=== PATIENT | female | born 1940 | race Hispanic/Latino ===

== ENCOUNTER 2019-10-02 06:44 | Outpatient (CLI) | payer MEDICARE, OTHER ==
[2019-10-02 18:03] LABS: #Basophils 0.1 thou/uL (0.0-0.2); #Eosinphils 0.1 thou/uL (0.0-0.7); #Lymphocytes 1.8 thou/uL (1.20-3.40); #Monocytes 0.4 thou/uL (0.11-0.59); #Neutrophils 4.6 thou/uL (1.40-6.50); %Eosinophils 1.8 % (0.0-10.0); %Lymphocytes 26.1 % (21.0-51.0); %Monocytes 5.9 % (0.0-10.0); %Neutrophils 65.2 % (42.0-75.0); Hemoglobin 14.4 g/dL (12.0-16.0); Mean Corpuscular HGB CONC 32.8 g/dL (32.0-36.0); Mean Corpuscular Hemoglobin 29.6 pg (27.0-31.0); Mean Corpuscular Volume 90.3 fL (78.0-98.0); Mean Platelet Volume 8.3 fL (7.4-10.4); Platelet Count 261 thou/uL (130-400); RBC Distribution Width 13.2 % (11.5-14.5); Red Blood Cell (RBC) Count 4.86 mill/uL (4.20-5.40)
[2019-10-02 18:08] LABS: Anion Gap 14 mmol/L (10-20); BUN (Urea Nitrogen) 15 mg/dL (9.8-20.1); Calc. Creatinine Clearance 0 mL/min (70-130); Calcium 9.3 mg/dL (7.8-10.44); Carbon Dioxide 22 mmol/L (23-31); Chloride 108 mmol/L (98-107); Estimated GFR-MDRD 82; Glucose 120 mg/dL (83-110); Potassium 3.8 mmol/L (3.5-5.1); Sodium 140 mmol/L (136-145)
[2019-10-03 13:14] LABS: SARS-CoV-2 MS2 Positive; SARS-CoV-2 N Gene Negative; SARS-CoV-2 S Gene Negative; SARS-CoV-2 orf1ab Negative
== END 2019-10-02 06:45 | disposition home or self-care (01) ==
LOC: LABBT 06:44
PROVIDERS: ATTEND Specialist
DX: Z01.812 Encounter for preprocedural laboratory examination (principal); Z11.59 Encounter for screening for other viral diseases; C50.412 Malignant neoplasm of upper-outer quadrant of left female breast; Z17.0 Estrogen receptor positive status [ER+]
CPT/HCPCS: 80048; 85025; U0003; 87635

== ENCOUNTER 2019-10-06 07:28 | Day surgery (SDC) | payer MEDICARE ==
[2019-10-01 17:17] VITALS: BMI 31.1
[2019-10-06] MEDS ORDERED: Acetaminophen 500 MG TAB ONE (09:10)
[2019-10-06] MEDS ORDERED: Ketorolac Tromethamine 30 MG/ML VIAL ONE (09:10)
--- NOTE | 2019-10-06 09:27 | NM ---
Lymphoscintigraphy left breast HISTORY: Malignant neoplasm upper outer left female breast. FINDINGS: Total volume of 1 cc liquid containing 0.386 mCi technetium 99m filtered sulfur colloid int o the skin around the periareolar aspect of the left breast was injected. Immediate images show a focal area of increased radiotracer activity deep within the slightly lateral aspect of the left breast. There are 2 additional slightly less intense foci into the superior and superior-medial aspect of the breast. Patient tolerated the procedure well and was transferred to day surgery in good condition. IMPRESSION : Technically successful lymphoscintigraphy left breast, with the dominant, sentinel lymph node deep wi thin the slightly lateral aspect of the left breast.
[2019-10-06] MEDS ORDERED: Bupivacaine 0.25% HCL 30 ML VIAL ONE (11:46)
[2019-10-06] MEDS ORDERED: Lidocaine 1% w/Epinephrine 1:100K 20 ML VIAL ONE (11:46)
[2019-10-06] MEDS ORDERED: Isosulfan Blue 50 MG/5 ML VIAL ONE (11:46)
[2019-10-06] MEDS ORDERED: Fentanyl 100 MCG/2 ML VIAL ONE ×2 (11:49→14:26)
[2019-10-06] MEDS ORDERED: HYDROcodone/Acetaminophen 5/325 mg Tablet ONE (14:39)
[2019-10-06] MEDS ORDERED: PROPOFOL 200 MG/20 ML VIAL ONE (15:28)
[2019-10-06] MEDS ORDERED: Lidocaine 1% PF 5 ML VIAL ONE (15:28)
[2019-10-06] MEDS ORDERED: EPHEDRINE 25 MG/5 ML SYRINGE ONE (15:28)
[2019-10-06] MEDS ORDERED: Dexamethasone 20 MG/5 ML VIAL ONE (15:28)
--- NOTE | 2019-10-06 16:52 | OP ---
DATE OF PROCEDURE: 10/06/2019 PREOPERATIVE DIAGNOSIS: Left breast cancer. POSTOPERATIVE DIAGNOSIS: Left breast cancer. PROCEDURES PERFORMED: Left breast ultrasound guided-needle localization, needle localized lumpectomy, left axillary sentinel lymph node biopsy. MECHANICAL ARTIST: Antione Ramesh, medical student. ANESTHESIA: General with laryngeal mask airway per Adelia Muller CRNA. INDICATIONS: The patient is an 79-year-old female. She had a palpable mass in the upper outer left breast and was taken to the operating room at this time for definitive excision after biopsy showed invasive ductal carcinoma. DESCRIPTION OF OPERATION: Informed consent was obtained. Preoperative lymphoscintigraphy was performed documenting sentinel lymph nodes within the left axilla. She was taken to the operating room, where general anesthesia obtained with the patient in supine position. Left breast and axilla were prepped with ChloraPrep and draped in sterile fashion. 3 mL of Lymphazurin was infiltrated in the left breast in the subdermal periareolar tissue and massaged for 5 minutes. Attention was turned first to the axilla. Local anesthetic was infiltrated and a transverse axillary incision was created and dissection was carried through skin and subcutaneous tissue. Within the axilla, the Neoprobe was utilized to identify areas of maximum radio-intensity. In so doing, I was able to identify 3 separate radioactive lymph nodes, two of which had strong blue staining as well. These were each dissected circumferentially and investing lymphatics were divided between clamps and 3-0 silk tie. There was no further area of significant radioactivity. The wound was meticulously checked for hemostasis and closed in layers with 3-0 and 4-0 Monocryl. Additional local anesthetic was infiltrated during closure. Attention was turned to the left breast. The location of the left breast was checked with ultrasound and marked on the skin in a grid like fashion. A marking needle was then passed through the cancer using ultrasound guidance in a lateral to medial fashion. An elliptical incision was created. Dissection was carried through skin and subcutaneous tissue. Flaps were gently raised superiorly and inferiorly. The lesion was fairly close to the skin. I then dissected a wide core of tissue around the localizing wire. The specimen was removed intact and inspected with ultrasound and margins appeared to be intact. Orienting sutures were placed and the specimen was passed off the field to mammography, which documented the biopsy clip within the specimen. It was then submitted to Pathology. Meticulous hemostasis was obtained within the wound. It was closed in layers with 3-0 and 4-0 Monocryl. Additional local anesthetic was infiltrated during closure. Dermabond was placed externally on both incisions. There were no complications. The patient tolerated the procedure well and was taken to recovery room in stable condition. Job ID: [id number]
== END 2019-10-06 15:38 | disposition home or self-care (01) ==
LOC: SDC 07:28
PROVIDERS: ATTEND Specialist
PROC: 0HBU0ZZ Excision of Left Breast, Open Approach (ICD-10-PCS; principal; 2019-10-06)
PROC: 07B60ZX Excision of Left Axillary Lymphatic, Open Approach, Diagnostic (ICD-10-PCS; 2019-10-06)
DX: C50.412 Malignant neoplasm of upper-outer quadrant of left female breast (principal); C77.3 Secondary and unspecified malignant neoplasm of axilla and upper limb lymph nodes; Z17.0 Estrogen receptor positive status [ER+]
CPT/HCPCS: 19301; 38525; 38900; 76098; 78195; A9541; Q9968; 88307; 88313; 88341; 88342; 88360; J0690; J1100; J1885; J2001; J2704; J3010; S0020

== ENCOUNTER 2019-10-19 05:06 | Outpatient (CLI) | payer MEDICARE, OTHER ==
[2019-10-19 14:27] LABS: #Eosinphils 0.1 thou/uL (0.0-0.7); #Lymphocytes 1.5 thou/uL (1.20-3.40); #Monocytes 0.5 thou/uL (0.11-0.59); #Neutrophils 8.4 thou/uL (1.40-6.50); %Basophils 0.3 % (0.0-1.0); %Eosinophils 1.1 % (0.0-10.0); %Lymphocytes 13.9 % (21.0-51.0); %Monocytes 5.1 % (0.0-10.0); %Neutrophils 79.7 % (42.0-75.0); Hemoglobin 14.8 g/dL (12.0-16.0); Mean Corpuscular HGB CONC 32.5 g/dL (32.0-36.0); Mean Corpuscular Hemoglobin 29.9 pg (27.0-31.0); Mean Platelet Volume 8.1 fL (7.4-10.4); Platelet Count 260 thou/uL (130-400); RBC Distribution Width 13.1 % (11.5-14.5); Red Blood Cell (RBC) Count 4.93 mill/uL (4.20-5.40); White Blood Cell (WBC) Count 10.6 thou/uL (4.8-10.8)
[2019-10-19 15:42] LABS: Anion Gap 13 mmol/L (10-20); BUN (Urea Nitrogen) 11 mg/dL (9.8-20.1); Calc. Creatinine Clearance 0 mL/min (70-130); Calcium 9.8 mg/dL (7.8-10.44); Carbon Dioxide 24 mmol/L (23-31); Chloride 106 mmol/L (98-107); Estimated GFR-MDRD 83; Glucose 99 mg/dL (83-110); Potassium 4.3 mmol/L (3.5-5.1); Sodium 139 mmol/L (136-145)
[2019-10-20 14:01] LABS: SARS-CoV-2 MS2 Positive; SARS-CoV-2 N Gene Negative; SARS-CoV-2 S Gene Negative; SARS-CoV-2 orf1ab Negative
== END 2019-10-19 05:07 | disposition home or self-care (01) ==
LOC: LABBT 05:06
PROVIDERS: ATTEND Specialist
DX: Z01.812 Encounter for preprocedural laboratory examination (principal); Z11.59 Encounter for screening for other viral diseases; C50.919 Malignant neoplasm of unspecified site of unspecified female breast
CPT/HCPCS: 80048; 85025; U0003; 87635

== ENCOUNTER 2019-10-29 06:30 | Outpatient (CLI) | payer MEDICARE, OTHER ==
[2019-10-29 11:54] LABS: #Eosinphils 0.1 thou/uL (0.0-0.7); #Lymphocytes 1.2 thou/uL (1.20-3.40); #Monocytes 0.3 thou/uL (0.11-0.59); #Neutrophils 3.7 thou/uL (1.40-6.50); %Basophils 0.8 % (0.0-1.0); %Eosinophils 1.4 % (0.0-10.0); %Lymphocytes 22.3 % (21.0-51.0); %Monocytes 5.7 % (0.0-10.0); %Neutrophils 69.9 % (42.0-75.0); Hemoglobin 14.7 g/dL (12.0-16.0); Mean Corpuscular HGB CONC 32.7 g/dL (32.0-36.0); Mean Corpuscular Hemoglobin 29.8 pg (27.0-31.0); Mean Corpuscular Volume 91.2 fL (78.0-98.0); Mean Platelet Volume 8.9 fL (7.4-10.4); Platelet Count 240 thou/uL (130-400); RBC Distribution Width 12.9 % (11.5-14.5); Red Blood Cell (RBC) Count 4.94 mill/uL (4.20-5.40); White Blood Cell (WBC) Count 5.3 thou/uL (4.8-10.8)
[2019-10-29 12:06] LABS: Anion Gap 14 mmol/L (10-20); BUN (Urea Nitrogen) 10 mg/dL (9.8-20.1); Calc. Creatinine Clearance 0 mL/min (70-130); Calcium 9.8 mg/dL (7.8-10.44); Carbon Dioxide 23 mmol/L (23-31); Chloride 107 mmol/L (98-107); Estimated GFR-MDRD 86; Glucose 98 mg/dL (83-110); Potassium 4.1 mmol/L (3.5-5.1); Sodium 140 mmol/L (136-145)
[2019-10-30 11:43] LABS: SARS-CoV-2 MS2 Positive; SARS-CoV-2 N Gene Negative; SARS-CoV-2 S Gene Negative; SARS-CoV-2 orf1ab Negative
== END 2019-10-29 06:31 | disposition home or self-care (01) ==
LOC: LABBT 06:30
PROVIDERS: ATTEND Specialist
DX: Z01.812 Encounter for preprocedural laboratory examination (principal); Z11.59 Encounter for screening for other viral diseases; C50.919 Malignant neoplasm of unspecified site of unspecified female breast
CPT/HCPCS: 80048; 85025; U0003; 87635

== ENCOUNTER 2019-11-03 06:53 | Day surgery (SDC) | payer MEDICARE ==
[2019-10-16 09:22] VITALS: BMI 33.1
[2019-11-03] MEDS ORDERED: Ketorolac Tromethamine 30 MG/ML VIAL ONE (08:09)
[2019-11-03] MEDS ORDERED: Acetaminophen 500 MG TAB ONE (08:09)
[2019-11-03] MEDS ORDERED: Lidocaine 1% w/Epinephrine 1:100K 20 ML VIAL ONE ×2 (08:43→09:18)
[2019-11-03] MEDS ORDERED: Bupivacaine 0.25% HCL 30 ML VIAL ONE (08:43)
[2019-11-03] MEDS ORDERED: Fentanyl 100 MCG/2 ML VIAL ONE (08:53)
[2019-11-03] MEDS ORDERED: Bupivacaine PF 0.5% 30 ML VIAL ONE (09:18)
[2019-11-03] MEDS ORDERED: Ondansetron PF 4 MG/2 ML Vial ONE (10:59)
[2019-11-03] MEDS ORDERED: EPHEDRINE 25 MG/5 ML SYRINGE ONE (10:59)
[2019-11-03] MEDS ORDERED: PROPOFOL 200 MG/20 ML VIAL ONE (10:59)
[2019-11-03] MEDS ORDERED: Dexamethasone 20 MG/5 ML VIAL ONE (10:59)
[2019-11-03] MEDS ORDERED: Lidocaine 1% PF 5 ML VIAL ONE (10:59)
--- NOTE | 2019-11-04 00:59 | OP ---
DATE OF PROCEDURE: 11/03/2019 PREOPERATIVE DIAGNOSIS: Invasive lobular carcinoma of the left breast, status post prior lumpectomy with a positive superior margin. POSTOPERATIVE DIAGNOSIS: Invasive lobular carcinoma of the left breast, status post prior lumpectomy with a positive superior margin. OPERATION PERFORMED: Re-excision of the superior margin of her left breast lumpectomy. ANESTHESIA: General endotracheal. INDICATIONS: The patient is an 79-year-old female. She is status post left breast lumpectomy. She was noted to have satellite nodules within the specimen and one of those satellite nodules involve the superior margin. For this reason, she is returned to the operating room for re-excision of the superior margin of her lumpectomy. DESCRIPTION OF OPERATION: Informed consent was obtained. The patient was taken to the operating room where general anesthesia was obtained with the patient in supine position. Left breast was prepped with ChloraPrep and draped in sterile fashion. Local anesthetic was infiltrated using a mixture of 0.25% Marcaine and 1% lidocaine with epinephrine. The prior lumpectomy incision was reopened. Dissection was carried through the breast tissue down into the lumpectomy cavity. The margins of the cavity were easily identified. A new superior margin was obtained between 5 and 8 mm thickness involving the entire superior aspect and extending over onto the medial, lateral, and posterior aspects. The specimen was removed intact. It was tagged with sutures for orientation and passed off the field for Pathology. Meticulous hemostasis was obtained within the wound using electrocautery. The wound was closed in layers with 3-0 and 4-0 Monocryl. Additional local anesthetic was instilled in the wound during closure. Dermabond was placed externally. There were no complications. The patient tolerated the procedure well and was taken to recovery room in stable condition. Job ID: [id number]
== END 2019-11-03 11:20 | disposition home or self-care (01) ==
LOC: SDC 06:53
PROVIDERS: ATTEND Specialist
PROC: 0HBU0ZZ Excision of Left Breast, Open Approach (ICD-10-PCS; principal; 2019-11-03)
DX: C50.412 Malignant neoplasm of upper-outer quadrant of left female breast (principal); N60.12 Diffuse cystic mastopathy of left breast; R92.0 Mammographic microcalcification found on diagnostic imaging of breast; Z17.0 Estrogen receptor positive status [ER+]
CPT/HCPCS: 88307; J0690; J1100; J1885; J2405; J2704; J3010; S0020

== ENCOUNTER 2021-08-07 08:07 | Inpatient (IN) | payer MEDICARE ==
[2021-08-07 08:37] LABS: #Lymphocytes 0.3 thou/uL (1.20-3.40); #Neutrophils 2.6 thou/uL (1.40-6.50); %Eosinophils 0.2 % (0.0-10.0); %Lymphocytes 10.2 % (21.0-51.0); %Monocytes 0.1 % (0.0-10.0); %Neutrophils 89.5 % (42.0-75.0); Mean Corpuscular HGB CONC 32.7 g/dL (32.0-36.0); Mean Corpuscular Hemoglobin 30.6 pg (27.0-31.0); Mean Corpuscular Volume 93.4 fL (78.0-98.0); Platelet Count 226 thou/uL (130-400); RBC Distribution Width 12.8 % (11.5-14.5); Red Blood Cell (RBC) Count 4.92 mill/uL (4.20-5.40); White Blood Cell (WBC) Count 2.9 thou/uL (4.8-10.8)
[2021-08-07] MEDS ORDERED: Aspirin Chewable 81 MG TAB ONE (08:49)
[2021-08-07 08:51] LABS: INR-International Normal Ratio 1.1; Prothrombin Time 13.8 sec (12.0-14.7)
[2021-08-07 08:52] LABS: PTT 35.9 sec (22.9-36.1)
[2021-08-07 08:57] LABS: ALT (SGPT) 8 U/L (8-55); AST (SGOT) 21 U/L (5-34); Albumin 3.6 g/dL (3.4-4.8); Alkaline Phosphatase 88 U/L (40-110); Anion Gap 17 mmol/L (10-20); BUN (Urea Nitrogen) 16 mg/dL (9.8-20.1); Bilirubin, Total 0.4 mg/dL (0.2-1.2); Calc. Creatinine Clearance 0 mL/min (70-130); Calcium 9.2 mg/dL (7.8-10.44); Carbon Dioxide 20 mmol/L (23-31); Chloride 106 mmol/L (98-107); Globulin 2.8 g/dL (2.4-3.5); Glucose 162 mg/dL (83-110); Potassium 3.7 mmol/L (3.5-5.1); Protein, Total 6.4 g/dL (5.8-8.1); Sodium 139 mmol/L (136-145)
[2021-08-07] MEDS ORDERED: Iopamidol-370 76% 500 ML 1 ML ONE (09:21)
[2021-08-07] MEDS ORDERED: Senokot S 8.6-50 MG TAB PO PRN (10:33)
[2021-08-07] MEDS ORDERED: Calcium Carbonate 500 MG ChewTAB PO PRN (10:33)
[2021-08-07] MEDS ORDERED: Nitroglycerin 0.4 MG TAB (25 Tab Bottle) SL PRN (10:57)
[2021-08-07 11:14] LABS: Magnesium 1.5 mg/dL (1.6-2.6)
[2021-08-07 11:16] LABS: Hemoglobin A1c 5.4 % (4.0-6.0)
[2021-08-07 11:51] LABS: Troponin I Less than 0.010 ng/mL (< 0.028)
[2021-08-07] MEDS ORDERED: Magnesium Sulfate In Water 4 GM in Premix Bag 1 BAG IVPB SCH (12:00)
[2021-08-07] MEDS ORDERED: Electrolyte Replacement Protocol 1 EACH FS PRN (13:45)
[2021-08-07] MEDS: Sodium Chloride 0.9% 1,000 ML IV SCH (14:57)
[2021-08-07] MEDS ORDERED: traMADol HCl 50 MG TAB PO SCH (15:00)
[2021-08-07 15:03] LABS: Troponin I Less than 0.010 ng/mL (< 0.028)
[2021-08-07 16:16] LABS: Bacteria/HPF None Seen HPF (None Seen); Bilirubin Negative (Negative); Blood, Urine Negative (Negative); Clarity Clear (Clear); Glucose, Urine (Dipstick) Normal (Negative); Ketone, Urine Negative (Negative); Leukocyte Negative Leu/uL (Negative); Nitrite Negative (Negative); Protein, Urine (Dipstick) Negative (Neg-Trace); RBC/HPF 0-3 HPF (0-3); Specific Gravity, Urine 1.028 (1.002-1.036); Squamous Epithelial 0-3 HPF (0-3); Urobilinogen Normal mg/dL (Less than 2); WBC/HPF 0-3 HPF (0-3)
[2021-08-07 16:23] LABS: Urine Culture Reflex No No
[2021-08-07] MEDS: Enoxaparin Sodium 40 MG/0.4 ML SYRINGE SC SCH (22:35)
[2021-08-07 23:10] LABS: SARS-CoV-2 PCR by NAA Not Detected (NotDetected)
[2021-08-08] MEDS ORDERED: Sodium Chloride 0.9% 500 ML IV SCH ×3 (00:15→04:15)
[2021-08-08] MEDS: Acetaminophen 325 MG TAB PO PRN ×3 (02:27→20:17)
[2021-08-08] MEDS ORDERED: Midodrine HCl 5 MG TAB PO SCH ×2 (05:15→05:18)
[2021-08-08 05:42] LABS: #Lymphocytes 0.7 thou/uL (1.20-3.40); #Monocytes 0.6 thou/uL (0.11-0.59); #Neutrophils 8.6 thou/uL (1.40-6.50); %Basophils 0.1 % (0.0-1.0); %Eosinophils 0.5 % (0.0-10.0); %Lymphocytes 7.1 % (21.0-51.0); %Monocytes 6.2 % (0.0-10.0); %Neutrophils 86.1 % (42.0-75.0); Hemoglobin 11.6 g/dL (12.0-16.0); Mean Corpuscular HGB CONC 32.6 g/dL (32.0-36.0); Mean Corpuscular Volume 94.9 fL (78.0-98.0); Mean Platelet Volume 7.2 fL (7.4-10.4); Platelet Count 168 thou/uL (130-400); Red Blood Cell (RBC) Count 3.74 mill/uL (4.20-5.40)
[2021-08-08 06:09] LABS: Albumin 2.7 g/dL (3.4-4.8); Anion Gap 9 mmol/L (10-20); BUN (Urea Nitrogen) 16 mg/dL (9.8-20.1); BUN/Creatinine Ratio 25.81; Calc. Creatinine Clearance 91 mL/min (70-130); Calcium 7.7 mg/dL (7.8-10.44); Carbon Dioxide 20 mmol/L (23-31); Cardiac Risk 3.7 (Less than 4.5); Chloride 110 mmol/L (98-107); Cholesterol 144 mg/dl (< 200 Desired); Glucose 89 mg/dL (83-110); HDL Cholesterol 39 mg/dL (>60 Neg Risk); LDL Cholesterol, Calculated 83 mg/dL; Magnesium 2.7 mg/dL (1.6-2.6); Potassium 3.4 mmol/L (3.5-5.1); Sodium 136 mmol/L (136-145); Triglycerides 109 mg/dL (Less than 150)
[2021-08-08] MEDS: Sodium Chloride 0.9% 1,000 ML IV SCH ×4 (06:14→16:23)
[2021-08-08] MEDS ORDERED: Potassium Chloride 20 MEQ TAB PO SCH (06:45)
[2021-08-08] MEDS ORDERED: Cosyntropin 250 MCG VIAL SLOW IVP SCH (07:15)
[2021-08-08 08:36] LABS: Free T4 (Free Thyroxine) 0.97 ng/dL (0.70-1.48); Thyroid Stimulating Hormone 1.7073 uIU/mL (0.35-4.94)
[2021-08-08] MEDS: Aspirin 325 mg Enteric Coated Tablet PO SCH (08:43)
[2021-08-08] MEDS ORDERED: Iopamidol 370 76% 100 ML VIAL ONE (08:50)
[2021-08-08] MEDS ORDERED: Ondansetron PF 4 MG/2 ML Vial IVP SCH (09:45)
[2021-08-08] MEDS ORDERED: Ondansetron PF 4 MG/2 ML Vial IVP PRN (15:59)
[2021-08-08] MEDS ORDERED: SUMAtriptan Succinate 50 MG TAB PO PRN (16:41)
[2021-08-08] MEDS: Enoxaparin Sodium 40 MG/0.4 ML SYRINGE SC SCH (20:19)
[2021-08-08] MEDS: Midodrine HCl 5 MG TAB PO SCH (21:32)
[2021-08-09 08:39] LABS: #Eosinphils 0.1 thou/uL (0.0-0.7); #Lymphocytes 0.8 thou/uL (1.20-3.40); #Monocytes 0.5 thou/uL (0.11-0.59); #Neutrophils 6.6 thou/uL (1.40-6.50); %Basophils 0.2 % (0.0-1.0); %Eosinophils 0.7 % (0.0-10.0); %Lymphocytes 9.6 % (21.0-51.0); %Monocytes 6.8 % (0.0-10.0); %Neutrophils 82.6 % (42.0-75.0); Hemoglobin 13.6 g/dL (12.0-16.0); Mean Corpuscular HGB CONC 32.4 g/dL (32.0-36.0); Mean Corpuscular Hemoglobin 30.4 pg (27.0-31.0); Mean Corpuscular Volume 93.7 fL (78.0-98.0); Mean Platelet Volume 7.4 fL (7.4-10.4); Platelet Count 198 thou/uL (130-400); RBC Distribution Width 12.9 % (11.5-14.5); Red Blood Cell (RBC) Count 4.48 mill/uL (4.20-5.40)
[2021-08-09] MEDS ORDERED: Regadenoson 0.4 MG/5 ML SYRINGE ONE (08:42)
[2021-08-09 08:55] LABS: Anion Gap 10 mmol/L (10-20); BUN (Urea Nitrogen) 6 mg/dL (9.8-20.1); Calc. Creatinine Clearance 98 mL/min (70-130); Calcium 9.1 mg/dL (7.8-10.44); Carbon Dioxide 21 mmol/L (23-31); Chloride 110 mmol/L (98-107); Glucose 104 mg/dL (83-110); Potassium 3.6 mmol/L (3.5-5.1); Sodium 137 mmol/L (136-145)
[2021-08-09] MEDS: Midodrine HCl 5 MG TAB PO SCH (09:03)
[2021-08-09] MEDS: Aspirin 325 mg Enteric Coated Tablet PO SCH (09:03)
[2021-08-09] MEDS: Anastrozole 1 MG TAB PO SCH (09:03)
[2021-08-09] MEDS: Acetaminophen 325 MG TAB PO PRN (09:18)
[2021-08-09] MEDS: Sodium Chloride 0.9% 1,000 ML IV SCH (13:06)
[2021-08-09] MEDS ORDERED: Communication Order-Pharmacy FS SCH (16:30)
[2021-08-09] MEDS: Dronedarone HCl 400 MG TAB PO SCH (17:57)
[2021-08-09] MEDS: Enoxaparin Sodium 40 MG/0.4 ML SYRINGE SC SCH (22:01)
[2021-08-10] MEDS ORDERED: Lidocaine 1% (PF) 30 ML VIAL ONE ×2 (07:29→09:23)
[2021-08-10] MEDS ORDERED: Fentanyl 100 MCG/2 ML VIAL ONE (08:09)
[2021-08-10] MEDS ORDERED: Midazolam HCl 2 mg/2 ml Vial ONE (08:09)
[2021-08-10] MEDS ORDERED: Morphine 4 MG/ML VIAL ONE ×2 (08:40→09:33)
[2021-08-10] MEDS ORDERED: Lidocaine 1% w/Epinephrine 1:100K 20 ML VIAL ONE (09:23)
[2021-08-10] MEDS ORDERED: Senokot S 8.6-50 MG TAB PO PRN (11:00)
[2021-08-10] MEDS: Dronedarone HCl 400 MG TAB PO SCH ×2 (12:35→17:01)
[2021-08-10] MEDS: Anastrozole 1 MG TAB PO SCH (12:36)
[2021-08-10] MEDS: Aspirin 325 mg Enteric Coated Tablet PO SCH (12:36)
[2021-08-11 07:44] LABS: #Eosinphils 0.1 thou/uL (0.0-0.7); #Lymphocytes 1.1 thou/uL (1.20-3.40); #Monocytes 0.5 thou/uL (0.11-0.59); #Neutrophils 5.1 thou/uL (1.40-6.50); %Basophils 0.3 % (0.0-1.0); %Eosinophils 2.1 % (0.0-10.0); %Lymphocytes 16.6 % (21.0-51.0); %Monocytes 6.9 % (0.0-10.0); Hemoglobin 13.4 g/dL (12.0-16.0); Mean Corpuscular HGB CONC 32.7 g/dL (32.0-36.0); Mean Corpuscular Hemoglobin 30.5 pg (27.0-31.0); Mean Corpuscular Volume 93.5 fL (78.0-98.0); Mean Platelet Volume 7.5 fL (7.4-10.4); Platelet Count 196 thou/uL (130-400); RBC Distribution Width 12.8 % (11.5-14.5); White Blood Cell (WBC) Count 6.9 thou/uL (4.8-10.8)
[2021-08-11 08:04] LABS: Anion Gap 12 mmol/L (10-20); BUN (Urea Nitrogen) 16 mg/dL (9.8-20.1); Calc. Creatinine Clearance 91 mL/min (70-130); Calcium 9.2 mg/dL (7.8-10.44); Carbon Dioxide 23 mmol/L (23-31); Chloride 108 mmol/L (98-107); Glucose 102 mg/dL (83-110); Potassium 3.3 mmol/L (3.5-5.1); Sodium 140 mmol/L (136-145)
[2021-08-11] MEDS ORDERED: Potassium Chloride 20 MEQ TAB PO SCH (08:45)
[2021-08-11] MEDS ORDERED: Apixaban 5 MG TAB PO SCH (09:00)
[2021-08-11] MEDS: Anastrozole 1 MG TAB PO SCH (09:11)
[2021-08-11] MEDS: Dronedarone HCl 400 MG TAB PO SCH (09:11)
[2021-08-11 12:09] VITALS: BP 117/62; TEMP 97.9
== END 2021-08-11 13:07 | disposition home or self-care (01) | DRG 287 ==
LOC: ERS 08:07 → NEURO 10:25 → OBSVTOIN 08-08 07:15
PROVIDERS: ADMIT Internal Medicine; ATTEND Internal Medicine
PROC: 4A023N7 Measurement of Cardiac Sampling and Pressure, Left Heart, Percutaneous Approach (ICD-10-PCS; principal; 2021-08-10)
PROC: B2111ZZ Fluoroscopy of Multiple Coronary Arteries using Low Osmolar Contrast (ICD-10-PCS; 2021-08-10)
PROC: B2151ZZ Fluoroscopy of Left Heart using Low Osmolar Contrast (ICD-10-PCS; 2021-08-10)
DX: I25.10 Atherosclerotic heart disease of native coronary artery without angina pectoris (principal); R55 Syncope and collapse; Z20.822 Contact with and (suspected) exposure to COVID-19; K21.9 Gastro-esophageal reflux disease without esophagitis; M19.90 Unspecified osteoarthritis, unspecified site; G89.4 Chronic pain syndrome; G43.909 Migraine, unspecified, not intractable, without status migrainosus; N18.30 Chronic kidney disease, stage 3 unspecified; D72.819 Decreased white blood cell count, unspecified; R73.9 Hyperglycemia, unspecified; E66.9 Obesity, unspecified; I48.0 Paroxysmal atrial fibrillation; Z90.710 Acquired absence of both cervix and uterus; Z85.3 Personal history of malignant neoplasm of breast; Z90.49 Acquired absence of other specified parts of digestive tract; Z88.8 Allergy status to other drugs, medicaments and biological substances; Z68.35 Body mass index [BMI] 35.0-35.9, adult
CPT/HCPCS: 36415; 70450; 70496; 70498; 70551; 71045; 71275; 78452; 80048; 80053; 80061; 80069; 80400; 81001; 82533; 83036; 83735; 83880; 84439; 84443; 84481; 84484; 85025; 85379; 85610; 85730; 87040; 93005; 93010; 93017; 93306; 93458; 93880; 99152; A9500; J0834; J1650; J2001; J2250; J2270; J2405; J2785; J3010; J3475; J7030; J7050; Q9967; U0003; U0005